=== PATIENT | female | born 1985 | race Caucasian/White ===

== ENCOUNTER 2020-02-11 11:28 | Emergency (ER) | payer OTHER ==
[~2020-02-11] VITALS: Ht 172.7 cm; Wt 90.7 kg
[2020-02-11] MEDS ORDERED: ONDANSETRON ODT8 MG PO (17:15)
== END 2020-02-11 17:52 | disposition home or self-care (01) ==
LOC: ED 11:28 → EDBD 11:29 → ED 11:29
DX: R10.32 Left lower quadrant pain (principal)
CPT/HCPCS: 74177; 80053; 81001; 83690; 84703; 85025; 96361; 96375; 96376; 99284-25; J1170; J2405; J2550; J7030; Q9967